=== PATIENT | female | born 1955 ===

== ENCOUNTER 2020-12-25 07:04 | Day surgery (SDC) | payer OTHER ==
[~2020-12-25 07:04] MED LIST: CALCIUM1 TAB PO; FLAXSEED OIL1000 M2 PO; HEART HEALTH A400 MG PO; HYZAAR 100-251 UDTAB PO; NABUMETONE500 MG PO; PERCOCET 5/3251 TAB PO; ULTRAN PO; [UNRECOGNIZED DRUG - OTHER] MC
== END 2020-12-25 15:10 | disposition home or self-care (01) ==
LOC: AMB-ENDOS 07:04
PROVIDERS: ATTEND Colon & Rectal Surgery
DX: K57.32 Diverticulitis of large intestine without perforation or abscess without bleeding (principal); K64.0 First degree hemorrhoids

== ENCOUNTER 2021-03-10 11:30 | Inpatient (IN) | payer OTHER ==
[~2021-03-10] VITALS: Ht 162.6 cm; Wt 98.4 kg
[2021-03-10] MEDS ORDERED: FORTAMET500 MG PO (14:05)
[2021-03-10] MEDS ORDERED: ANIMAL CHEWS1 EACH (14:05)
[2021-03-10] MEDS ORDERED: [UNRECOGNIZED DRUG - OTHER] PO (14:11)
[2021-03-10] MEDS ORDERED: CALCIUM500 M2 PO (14:12)
[2021-03-10] MEDS ORDERED: VITAMIN C PO (14:12)
[2021-03-17] MEDS ORDERED: ZOLPIDEM TARTRA10 MG (08:13)
[2021-03-17] MEDS ORDERED: VITAMIN C1000 MG PO (08:14)
[2021-03-17] MEDS ORDERED: LODINE300 MG (08:17)
== END 2021-03-19 18:45 | disposition home or self-care (01) | DRG 333 ==
LOC: SURH 03-16 07:00 → O/R 03-16 10:23 → SURH 03-16 11:30 → SURG 03-16 19:06
PROVIDERS: ADMIT Colon & Rectal Surgery; ATTEND Colon & Rectal Surgery
PROC: 3E0F7SF Introduction of Other Gas into Respiratory Tract, Via Natural or Artificial Opening (ICD-10-PCS; 2021-03-16)
PROC: 4A12X4Z Monitoring of Cardiac Electrical Activity, External Approach (ICD-10-PCS; 2021-03-16)
PROC: 0DBP4ZZ Excision of Rectum, Percutaneous Endoscopic Approach (ICD-10-PCS; principal; 2021-03-16 07:00)
DX: K57.30 Diverticulosis of large intestine without perforation or abscess without bleeding (principal); K92.1 Melena; I10 Essential (primary) hypertension; E11.9 Type 2 diabetes mellitus without complications; E66.01 Morbid (severe) obesity due to excess calories; G47.33 Obstructive sleep apnea (adult) (pediatric); D75.1 Secondary polycythemia; R10.9 Unspecified abdominal pain; R14.1 Gas pain